=== PATIENT | male | born 1950 | race Caucasian/White ===

== ENCOUNTER 2017-06-09 15:56 | Inpatient (IN) | payer BC ==
[~2017-06-09] VITALS: Ht 185.4 cm; Wt 109.5 kg
--- NOTE | ~2017-06-09 | PR ---
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 His cultures from the ulcer from the have only grown Aerococcus. Urine grew enterococcus. Blood cultures are negative. He is scheduled for debridement by Dr. Garcia on Thursday. WBCs have improved down to 11.3. The patient is alert and oriented, tolerating the antibiotics. Denies fever, chills, nausea, vomiting or diarrhea. No rash or itch. No cough or shortness of breath. No fevers or shaking chills. OBJECTIVE: VITAL SIGNS: Show temperature 98.0, pulse 80, respirations 18, BP 128/52. LABORATORY DATA: Cultures as reviewed above. Vancomycin trough 22. WBC is 11.3, platelets 254. BUN 12, creatinine 0.92. CURRENT MEDICATIONS: Include vancomycin, Percocet, Ativan, vitamin D, folic acid, Neurontin, Lanoxin, ____, Senokot, Micro-K, MiraLax, Nicoderm, Dulera, Toprol, Cozaar, Colace, Cardizem, aspirin, Zyloprim, DuoNeb, Desyrel, Nitrostat, Protonix, Zosyn. PHYSICAL EXAMINATION: GENERAL: She is alert and oriented. 66-year-old male in no acute distress. HEAD, EYES, EARS, NOSE AND THROAT: Normocephalic, no thrush. LUNGS: Clear to auscultation bilaterally. Respirations even and unlabored. HEART: Regular rhythm. No murmur appreciated. ABDOMEN: Soft, positive bowel sounds. EXTREMITIES: Trace edema bilateral lower extremities, few dressings on the left lower extremity, right buttock decubitus, large extensive undermining fibrotic with foul odor and a large amount of purulent discharge. Surrounding skin with mild erythema and induration. ASSESSMENT: Infected stage IV right buttock decubitus with cultures thus far only growing enterococcus. PLAN: At this point, we will stop the vancomycin. Continue the Zosyn. The Enterococcus is sensitive to ampicillin. He has debridement on Thursday. Case discussed with Dr. Ro Kumar. ADDENDUM After reviewing the chart and labs, I agree with the above plans as described. We will follow the patient up clinically and adjust accordingly. KENDY GAO CNP [place], [place] PROGRESS NOTE NAME: LORYGUIDO UNIT #: [id number] ROOM: 516 DOCTOR: SIMA MARROQUIN BIRTHDATE: [birth year] RO KUMAR MD CM:PNTRANS [id number] AUGUST SIMA MARROQUIN 06/16/17 0551 interface
--- NOTE | ~2017-06-09 | PR ---
[place], [place] PROGRESS NOTE NAME: GUIDO HENLEY UNIT #: [id number] ROOM: 516 DOCTOR: JOSÉ RAUSCH,RO [place] BIRTHDATE: [birth year] DOS: 06/14/2017 ADDENDUM I agree with the above plans as described. We will follow the patient up clinically and adjust accordingly. RO KUMAR MD CM:PNTRANS [id number] RO KUMAR MD 06/16/17 0928 interface
--- NOTE | ~2017-06-09 | PR ---
[place], [place] PROGRESS NOTE NAME: GUIDO HENLEY UNIT #: [id number] ROOM: 516 DOCTOR: SIMA MARROQUIN,AUGUST BIRTHDATE: [birth year] DOS: SUBJECTIVE: The patient is being followed for an infected decubitus of his buttock. Outpatient cultures had grown enterococcus. Urine cultures had also grown enterococcus as colonization. The outpatient culture was obtained on June 08. The decubitus originally developed when he was hospitalized for severe pneumonia and ____. He is scheduled for surgery tomorrow. He remains on Zosyn. He has had no fevers or chills. No nausea, vomiting or diarrhea. No rash or itch. No cough or shortness of breath. LABORATORY DATA: Show WBCs 11.2, platelets 238. BUN 13 and creatinine 0.97. CURRENT MEDICATIONS: Include Solu-Medrol, Lovenox, Percocet, Ativan, vitamin D, folic acid, Neurontin, morphine, Dakin's, Senokot, Micro-K, MiraLax, Nicoderm, Dulera, Toprol, Cozaar, Colace, Cardizem, aspirin, Zyloprim, DuoNeb, Desyrel, Protonix, Zosyn and Zofran. PHYSICAL EXAMINATION: VITAL SIGNS: Temp 97.6, pulse 80, respirations 20 and BP 110/65. GENERAL: A 66-year-old obese male in no acute distress. HEAD, EYES, EARS, NOSE AND THROAT: Normocephalic, no thrush. LUNGS: Clear to auscultation bilaterally. Respirations even and unlabored. HEART: Regular rhythm. No murmur appreciated. ABDOMEN: Soft, nontender. EXTREMITIES: +1 edema bilateral lower extremities. Left leg ulcer is dressed, buttocks to keep dressed. SKIN: Warm, dry, free of rashes. ASSESSMENT: Infected most likely stage IV right buttock decubitus. PLAN: We will continue the Zosyn. Follow up on surgery tomorrow. He is going for surgical debridement per Dr. Garcia. I did discuss with the patient turning [id number] to stay off of the wound to help with wound healing, not sitting on it that he could ambulate and turn side to side in bed to relieve pressure to help with wound healing as well as making sure he has adequate protein intake in his diet and we discussed dietary sources of protein. Case discussed with Dr. Ro Kumar. KENDY GAO CNP [place], [place] PROGRESS NOTE NAME: GUIDO HENLEY UNIT #: [id number] ROOM: 516 DOCTOR: SIMA MARROQUIN BIRTHDATE: [birth year] RO KUMAR MD CM:PNTRANS [id number] AUGUST SIMA MARROQUIN 06/15/17 0338 interface
[~2017-06-09 15:56] MED LIST: AZOR 10-20 MG1 EACH PO; COUMADIN5 M1 PO; COUMADIN7.5 M1 PO; FLOMAX0.4 MG PO; NICODERM CQ1 EAC1 TD; NORCO 7.5-3251 EACH PO; TOPROL XL50 M1 PO
[2017-06-09 16:07] VITALS: BP 108/55
[2017-06-09] MEDS ORDERED: ASPIRIN ADULT L81 M2 PO (16:08)
[2017-06-09] MEDS ORDERED: NITROGLYCERIN0.4 MG SL (16:09)
[2017-06-09] MEDS ORDERED: DOK COLACE100 MG PO (16:09)
[2017-06-09] MEDS ORDERED: SANTYL30 GM T (16:10)
[2017-06-09] MEDS ORDERED: ACETAMINOPHEN325 M2 PO (16:10)
[2017-06-09] MEDS ORDERED: NATURAL VEGETA PO (16:11)
[2017-06-09] MEDS ORDERED: PREDNISONE20 M1 PO (16:11)
[2017-06-09] MEDS ORDERED: GABAPENTIN100 M2 PO (16:11)
[2017-06-09] MEDS ORDERED: MIRALAX POWDER255 G1 PO (16:12)
[2017-06-09] MEDS ORDERED: DUONEB 3 MG/3 ML3 M1 INH (16:13)
[2017-06-09] MEDS ORDERED: DAKIN S T (16:13)
[2017-06-09] MEDS ORDERED: BREO ELLIPTA 11 EACH INH (16:13)
[2017-06-09] MEDS ORDERED: ARGINAID POWDE1 EACH PO (16:14)
[2017-06-09] MEDS ORDERED: ALLOPURINOL300 MG PO (16:15)
[2017-06-09] MEDS ORDERED: FUROSEMIDE40 MG PO (16:15)
[2017-06-09] MEDS ORDERED: DIGOX250 MCG PO (16:15)
[2017-06-09] MEDS ORDERED: DILTIAZEM HCL240 M1 PO (16:16)
[2017-06-09] MEDS ORDERED: METOPROLOL SUCC25 M2 PO (16:17)
[2017-06-09] MEDS ORDERED: POTASSIUM CHLO10 ME4 PO (16:30)
[2017-06-09] MEDS ORDERED: LOSARTAN POTASS50 M1 PO (16:31)
[2017-06-09] MEDS ORDERED: XARE20MG PO (16:32)
[2017-06-09] MEDS ORDERED: TRAZODONE50 MG PO (16:32)
[2017-06-09] MEDS ORDERED: MILK OF MA400 MG/51 PO (16:33)
[2017-06-09 20:12] LABS: BILIRUBIN NEGATIVE (NEGATIVE); BLOOD NEGATIVE (NEGATIVE); CLARITY SL CLOUDY (CLEAR); COLOR YELLOW (YELLOW); GLUCOSE NEGATIVE (NEGATIVE); KETONE NEGATIVE (NEGATIVE); LEUKO ESTERASE 2+ (NEGATIVE); NITRITE NEGATIVE (NEGATIVE); PH 5.5 (5.0-9.0); UROBILINOGEN 0.2 E.U./dl (0.2-1.0)
[2017-06-09 20:17] VITALS: BP 114/60
[2017-06-09 20:24] LABS: BACTERIA 2+; EPITHELIAL CELLS 0-2; RBC 0-2 rbc/hpf (0-2); WBC TNTC wbc/hpf (0-5)
[2017-06-09 20:34] LABS: ALKALINE PHOSPHATASE 94 U/L (45-117); BUN 23 mg/dl (7-24); CHLORIDE 95 mmol/L (98-107); CREATININE 1.07 mg/dL (0.70-1.30); POTASSIUM 4.6 mmol/L (3.5-5.1); SGOT/AST 40 IU/L (3-35); SGPT/ALT 79 U/L (12-78); SODIUM 136 mmol/L (136-145); TOTAL PROTEIN 7.4 gm/dL (6.4-8.2)
[2017-06-09 20:46] LABS: PLATELET SUFFICIENCY NORMAL (NORMAL); TOTAL CELLS COUNTED 100 #CELLS
[2017-06-09 20:49] LABS: TARGET CELLS FEW
[2017-06-09 21:03] LABS: HEMATOCRIT 30.9 % (42.0-52.0); HEMOGLOBIN 9.5 g/dl (14.0-18.0); MEAN CELL VOLUME 86.3 fl (80.0-94.0); MEAN CORPUSCULAR HGB 26.5 pg (27.0-31.0); MEAN CORPUSCULAR HGB CONC 30.7 g/dl (33.0-37.0); MEAN PLATELET VOLUME 8.5 fl (9.6-12.3); PLATELET COUNT AUTOMATED 287 10*3/uL (130-400); RED BLOOD COUNT 3.58 10*6/uL (4.50-5.90); RED CELL DISTRI WIDTH 21.9 % (0-14.5); WHITE BLOOD COUNT 17.8 10*3/uL (4.8-10.8)
[2017-06-09 22:10] VITALS: BP 143/73
[2017-06-10] VITALS: BP 143/73
[2017-06-10 04:29] LABS: HEMATOCRIT 28.4 % (42.0-52.0); HEMOGLOBIN 8.7 g/dl (14.0-18.0); MEAN CELL VOLUME 86.3 fl (80.0-94.0); MEAN CORPUSCULAR HGB 26.4 pg (27.0-31.0); MEAN CORPUSCULAR HGB CONC 30.6 g/dl (33.0-37.0); MEAN PLATELET VOLUME 8.8 fl (9.6-12.3); PLATELET COUNT AUTOMATED 259 10*3/uL (130-400); RED BLOOD COUNT 3.29 10*6/uL (4.50-5.90); RED CELL DISTRI WIDTH 21.7 % (0-14.5); WHITE BLOOD COUNT 15.3 10*3/uL (4.8-10.8)
[2017-06-10 04:53] LABS: ALBUMIN 2.3 gm/dl (3.1-4.5); BUN 22 mg/dl (7-24); CHLORIDE 100 mmol/L (98-107); CHOLESTEROL 102 mg/dL (<200); CREATININE 0.95 mg/dL (0.70-1.30); INTERNATIONAL NORM RATIO 1.1 (2.0-3.5); PHOSPHOROUS 4.9 mg/dL (2.5-4.9); POTASSIUM 3.8 mmol/L (3.5-5.1); SGOT/AST 26 IU/L (3-35); SGPT/ALT 59 U/L (12-78); SODIUM 139 mmol/L (136-145); TOTAL PROTEIN 5.9 gm/dL (6.4-8.2); TRIGLYCERIDES 68 mg/dl (<150); VLDL CHOLESTEROL 14 mg/dL (6-40)
[2017-06-10 04:54] LABS: ALKALINE PHOSPHATASE 69 U/L (45-117); HDL CHOLESTEROL 60 mg/dl (40-60); LDL CHOLESTEROL 28 mg/dL (9-159)
[2017-06-10 05:18] LABS: PLATELET SUFFICIENCY NORMAL (NORMAL); TOTAL CELLS COUNTED 100 #CELLS
[2017-06-10 05:19] LABS: TARGET CELLS FEW
[2017-06-10 08:00] VITALS: BP 113/51
[2017-06-10 08:15] VITALS: BP 122/62
[2017-06-10] MEDS ORDERED: NORCO 10-325 T1 EACH PO (09:19)
[2017-06-10] MEDS ORDERED: NORCO 5-325 TA1 EACH PO (09:19)
[2017-06-10] MEDS ORDERED: XARELTO10 MG PO (09:20)
[2017-06-10 10:10] LABS: VITAMIN D, 25-HYDROXY 14.6 ng/mL (30-100)
[2017-06-10 12:00] VITALS: BP 131/62
[2017-06-10 16:00] VITALS: BP 118/47
[2017-06-10 20:00] VITALS: BP 92/52
[2017-06-11] VITALS: BP 108/54
[2017-06-11 06:33] LABS: HEMATOCRIT 29.5 % (42.0-52.0); HEMOGLOBIN 9.1 g/dl (14.0-18.0); MEAN CELL VOLUME 87.5 fl (80.0-94.0); MEAN CORPUSCULAR HGB CONC 30.8 g/dl (33.0-37.0); MEAN PLATELET VOLUME 8.8 fl (9.6-12.3); PLATELET COUNT AUTOMATED 268 10*3/uL (130-400); RED BLOOD COUNT 3.37 10*6/uL (4.50-5.90); RED CELL DISTRI WIDTH 22.2 % (0-14.5); WHITE BLOOD COUNT 12.5 10*3/uL (4.8-10.8)
[2017-06-11 07:18] LABS: BASOPHILS 1 % (0-1); PLATELET SUFFICIENCY NORMAL (NORMAL); POLYCHROMASIA SLIGHT; TOTAL CELLS COUNTED 100 #CELLS
[2017-06-11 08:00] VITALS: BP 138/61
[2017-06-11 08:45] VITALS: BP 138/72
[2017-06-11 12:00] VITALS: BP 105/50
[2017-06-11 16:00] VITALS: BP 96/40
[2017-06-11 20:00] VITALS: BP 124/68
[2017-06-12] VITALS: BP 115/40
[2017-06-12 07:57] LABS: HEMATOCRIT 30.9 % (42.0-52.0); HEMOGLOBIN 9.3 g/dl (14.0-18.0); MEAN CELL VOLUME 88.5 fl (80.0-94.0); MEAN CORPUSCULAR HGB 26.6 pg (27.0-31.0); MEAN CORPUSCULAR HGB CONC 30.1 g/dl (33.0-37.0); MEAN PLATELET VOLUME 8.8 fl (9.6-12.3); PLATELET COUNT AUTOMATED 254 10*3/uL (130-400); RED BLOOD COUNT 3.49 10*6/uL (4.50-5.90); RED CELL DISTRI WIDTH 22.3 % (0-14.5); WHITE BLOOD COUNT 11.3 10*3/uL (4.8-10.8)
[2017-06-12 08:00] VITALS: BP 128/52
[2017-06-12 08:28] LABS: BUN 12 mg/dl (7-24); CHLORIDE 100 mmol/L (98-107); CREATININE 0.92 mg/dL (0.70-1.30); POTASSIUM 4.1 mmol/L (3.5-5.1); SODIUM 141 mmol/L (136-145)
[2017-06-12 08:52] LABS: PLATELET SUFFICIENCY NORMAL (NORMAL); TOTAL CELLS COUNTED 100 #CELLS
[2017-06-12 16:00] VITALS: BP 104/38
[2017-06-12 20:00] VITALS: BP 124/63
[2017-06-13] VITALS: BP 99/55
[2017-06-13 06:32] LABS: HEMATOCRIT 30.3 % (42.0-52.0); HEMOGLOBIN 8.9 g/dl (14.0-18.0); MEAN CELL VOLUME 89.9 fl (80.0-94.0); MEAN CORPUSCULAR HGB 26.4 pg (27.0-31.0); MEAN CORPUSCULAR HGB CONC 29.4 g/dl (33.0-37.0); MEAN PLATELET VOLUME 9.4 fl (9.6-12.3); PLATELET COUNT AUTOMATED 257 10*3/uL (130-400); RED BLOOD COUNT 3.37 10*6/uL (4.50-5.90); RED CELL DISTRI WIDTH 22.3 % (0-14.5); WHITE BLOOD COUNT 11.9 10*3/uL (4.8-10.8)
[2017-06-13 06:46] LABS: BUN 11 mg/dl (7-24); CHLORIDE 99 mmol/L (98-107); POTASSIUM 4.1 mmol/L (3.5-5.1); SODIUM 139 mmol/L (136-145)
[2017-06-13 07:10] LABS: TOTAL CELLS COUNTED 100 #CELLS
[2017-06-13 07:11] LABS: PLATELET SUFFICIENCY NORMAL (NORMAL)
[2017-06-13 08:00] VITALS: BP 106/45
[2017-06-13 12:00] VITALS: BP 108/36
[2017-06-13 16:00] VITALS: BP 110/46
[2017-06-13 20:00] VITALS: BP 91/48
[2017-06-14 00:16] VITALS: BP 96/59
[2017-06-14 06:15] LABS: BASO % 0.2 % (0.0-1.0); HEMATOCRIT 30.9 % (42.0-52.0); HEMOGLOBIN 9.3 g/dl (14.0-18.0); LYMPH # 1.1 10*3/uL (1.3-4.4); LYMPH % 9.7 % (27.0-41.0); MEAN CELL VOLUME 88.8 fl (80.0-94.0); MEAN CORPUSCULAR HGB 26.7 pg (27.0-31.0); MEAN CORPUSCULAR HGB CONC 30.1 g/dl (33.0-37.0); MEAN PLATELET VOLUME 8.8 fl (9.6-12.3); MONO # 0.3 10*3/uL (0.1-1.0); MONO % 2.6 % (3.0-9.0); NEUT # 9.6 10*3/uL (2.3-7.9); NEUT % 85.6 % (47.0-73.0); PLATELET COUNT AUTOMATED 238 10*3/uL (130-400); RED BLOOD COUNT 3.48 10*6/uL (4.50-5.90); RED CELL DISTRI WIDTH 22.2 % (0-14.5); WHITE BLOOD COUNT 11.2 10*3/uL (4.8-10.8)
[2017-06-14 06:46] LABS: BUN 13 mg/dl (7-24); CHLORIDE 100 mmol/L (98-107); CREATININE 0.97 mg/dL (0.70-1.30); POTASSIUM 4.7 mmol/L (3.5-5.1); SODIUM 138 mmol/L (136-145)
[2017-06-14 08:00] VITALS: BP 142/67
[2017-06-14 10:59] VITALS: BP 136/66
[2017-06-14 12:00] VITALS: BP 105/51
[2017-06-14 16:56] VITALS: BP 110/65
[2017-06-14 20:12] VITALS: BP 136/43
[2017-06-15] VITALS (9 sets, daily range): BP systolic 122–145; BP diastolic 50–70
[2017-06-15 07:13] LABS: BASO % 0.1 % (0.0-1.0); HEMATOCRIT 35.2 % (42.0-52.0); HEMOGLOBIN 10.3 g/dl (14.0-18.0); LYMPH # 1.5 10*3/uL (1.3-4.4); LYMPH % 8.3 % (27.0-41.0); MEAN CORPUSCULAR HGB 26.6 pg (27.0-31.0); MEAN CORPUSCULAR HGB CONC 29.3 g/dl (33.0-37.0); MEAN PLATELET VOLUME 9.3 fl (9.6-12.3); MONO # 0.3 10*3/uL (0.1-1.0); MONO % 1.8 % (3.0-9.0); NEUT # 16.1 10*3/uL (2.3-7.9); NEUT % 88.6 % (47.0-73.0); RED BLOOD COUNT 3.87 10*6/uL (4.50-5.90); RED CELL DISTRI WIDTH 22.2 % (0-14.5); WHITE BLOOD COUNT 18.2 10*3/uL (4.8-10.8)
[2017-06-15 07:16] LABS: PLATELET COUNT AUTOMATED 338 10*3/uL (130-400)
[2017-06-16] VITALS: BP 125/68
[2017-06-16 06:32] LABS: BASO % 0.1 % (0.0-1.0); HEMATOCRIT 31.8 % (42.0-52.0); HEMOGLOBIN 9.5 g/dl (14.0-18.0); LYMPH # 1.2 10*3/uL (1.3-4.4); LYMPH % 7.4 % (27.0-41.0); MEAN CELL VOLUME 90.1 fl (80.0-94.0); MEAN CORPUSCULAR HGB 26.9 pg (27.0-31.0); MEAN CORPUSCULAR HGB CONC 29.9 g/dl (33.0-37.0); MEAN PLATELET VOLUME 9.1 fl (9.6-12.3); MONO # 0.4 10*3/uL (0.1-1.0); MONO % 2.4 % (3.0-9.0); NEUT % 88.9 % (47.0-73.0); PLATELET COUNT AUTOMATED 322 10*3/uL (130-400); RED BLOOD COUNT 3.53 10*6/uL (4.50-5.90); RED CELL DISTRI WIDTH 22.3 % (0-14.5); WHITE BLOOD COUNT 15.7 10*3/uL (4.8-10.8)
[2017-06-16 07:05] LABS: BUN 20 mg/dl (7-24); CHLORIDE 102 mmol/L (98-107); CREATININE 1.07 mg/dL (0.70-1.30); PHOSPHOROUS 3.7 mg/dL (2.5-4.9); POTASSIUM 4.8 mmol/L (3.5-5.1); SODIUM 139 mmol/L (136-145)
[2017-06-16 08:00] VITALS: BP 168/86
[2017-06-16 12:00] VITALS: BP 111/84
[2017-06-16 16:00] VITALS: BP 122/51
[2017-06-16 20:00] VITALS: BP 147/51
[2017-06-17] VITALS: BP 190/85
[2017-06-17 07:23] LABS: BASO % 0.1 % (0.0-1.0); HEMATOCRIT 31.4 % (42.0-52.0); HEMOGLOBIN 9.6 g/dl (14.0-18.0); LYMPH # 1.3 10*3/uL (1.3-4.4); LYMPH % 9.3 % (27.0-41.0); MEAN CORPUSCULAR HGB 27.2 pg (27.0-31.0); MEAN CORPUSCULAR HGB CONC 30.6 g/dl (33.0-37.0); MONO # 0.5 10*3/uL (0.1-1.0); MONO % 3.6 % (3.0-9.0); NEUT # 12.2 10*3/uL (2.3-7.9); NEUT % 85.2 % (47.0-73.0); PLATELET COUNT AUTOMATED 329 10*3/uL (130-400); RED BLOOD COUNT 3.53 10*6/uL (4.50-5.90); WHITE BLOOD COUNT 14.3 10*3/uL (4.8-10.8)
[2017-06-17 08:00] VITALS: BP 157/74
[2017-06-17 12:00] VITALS: BP 138/55
[2017-06-17 16:00] VITALS: BP 126/55
[2017-06-17 19:55] VITALS: BP 150/70
[2017-06-18] VITALS: BP 156/59
[2017-06-18 06:42] VITALS: BP 143/60
[2017-06-18 12:00] VITALS: BP 131/54
[2017-06-18 16:00] VITALS: BP 147/80
[2017-06-18 20:00] VITALS: BP 156/75
[2017-06-19] VITALS: BP 156/72
[2017-06-19 07:01] LABS: HEMATOCRIT 32.4 % (42.0-52.0); HEMOGLOBIN 9.9 g/dl (14.0-18.0); MEAN CELL VOLUME 88.3 fl (80.0-94.0); MEAN CORPUSCULAR HGB CONC 30.6 g/dl (33.0-37.0); MEAN PLATELET VOLUME 8.6 fl (9.6-12.3); PLATELET COUNT AUTOMATED 344 10*3/uL (130-400); RED BLOOD COUNT 3.67 10*6/uL (4.50-5.90); RED CELL DISTRI WIDTH 22.3 % (0-14.5); WHITE BLOOD COUNT 14.9 10*3/uL (4.8-10.8)
[2017-06-19 07:38] LABS: CHLORIDE 98 mmol/L (98-107); POTASSIUM 4.5 mmol/L (3.5-5.1); SODIUM 137 mmol/L (136-145)
[2017-06-19 07:42] LABS: BUN 25 mg/dl (7-24); CREATININE 0.91 mg/dL (0.70-1.30)
[2017-06-19 08:11] LABS: POLYCHROMASIA SLIGHT; TOTAL CELLS COUNTED 100 #CELLS
[2017-06-19 08:12] LABS: PLATELET SUFFICIENCY NORMAL (NORMAL); TARGET CELLS FEW
[2017-06-19 08:43] VITALS: BP 164/94
[2017-06-19 12:00] VITALS: BP 116/65
[2017-06-19] MEDS ORDERED: SOLU-MEDRO40 MG/1 ML IV (12:36)
[2017-06-19] MEDS ORDERED: ENOXAPARIN120 MG/0.2 SC (12:36)
[2017-06-19] MEDS ORDERED: ZOSYN 3.373.375 GM/5 IV (12:36)
== END 2017-06-19 16:07 | DRG 853 ==
LOC: EDSTATUS 15:56 → ED 15:56 → EDHOLD 21:25 → 5E 21:25
PROVIDERS: Emergency Medicine; Hospitalist; Internal Medicine; Internal Medicine Hospice and Palliative Medicine
PROC: 0JB70ZZ Excision of Back Subcutaneous Tissue and Fascia, Open Approach (ICD-10-PCS; principal; 2017-06-15)
PROC: 0JBP0ZZ Excision of Left Lower Leg Subcutaneous Tissue and Fascia, Open Approach (ICD-10-PCS; principal; 2017-06-15)
PROC: 02HV33Z Insertion of Infusion Device into Superior Vena Cava, Percutaneous Approach (ICD-10-PCS; 2017-06-18)
DX: A41.9 Sepsis, unspecified organism (principal); E43 Unspecified severe protein-calorie malnutrition; L89.153 Pressure ulcer of sacral region, stage 3; E87.8 Other disorders of electrolyte and fluid balance, not elsewhere classified; L89.154 Pressure ulcer of sacral region, stage 4; I48.2 Chronic atrial fibrillation; S31.819A Unspecified open wound of right buttock, initial encounter; D64.9 Anemia, unspecified; N39.0 Urinary tract infection, site not specified; I25.10 Atherosclerotic heart disease of native coronary artery without angina pectoris; G62.9 Polyneuropathy, unspecified; I73.9 Peripheral vascular disease, unspecified; R65.20 Severe sepsis without septic shock; N40.0 Benign prostatic hyperplasia without lower urinary tract symptoms; E53.8 Deficiency of other specified B group vitamins; T14.8XXA Other injury of unspecified body region, initial encounter; R73.9 Hyperglycemia, unspecified; L08.9 Local infection of the skin and subcutaneous tissue, unspecified; B95.2 Enterococcus as the cause of diseases classified elsewhere; F12.10 Cannabis abuse, uncomplicated; I10 Essential (primary) hypertension; K59.00 Constipation, unspecified; M1A.9XX0 Chronic gout, unspecified, without tophus (tophi); G47.00 Insomnia, unspecified; E55.9 Vitamin D deficiency, unspecified; Z68.31 Body mass index [BMI] 31.0-31.9, adult; Z79.1 Long term (current) use of non-steroidal anti-inflammatories (NSAID); Z79.82 Long term (current) use of aspirin; Z79.899 Other long term (current) drug therapy

== ENCOUNTER → 2017-07-07 | Outpatient (CLI) | payer BC ==
[~2017-07-07] MED LIST changes: +ACETAMINOPHEN325 M2 PO; +ALLOPURINOL300 MG PO; +ARGINAID POWDE1 EACH PO; +ASPIRIN ADULT L81 M2 PO; +BREO ELLIPTA 11 EACH INH; +DAKIN S T; +DIGOX250 MCG PO; +DILTIAZEM HCL240 M1 PO; +DOK COLACE100 MG PO; +DUONEB 3 MG/3 ML3 M1 INH; +ENOXAPARIN120 MG/0.2 SC; +FUROSEMIDE40 MG PO; +GABAPENTIN100 M2 PO; +LOSARTAN POTASS50 M1 PO; +METOPROLOL SUCC25 M2 PO; +MILK OF MA400 MG/51 PO; +MIRALAX POWDER255 G1 PO; +NATURAL VEGETA PO; +NITROGLYCERIN0.4 MG SL; +NORCO 10-325 T1 EACH PO; +NORCO 5-325 TA1 EACH PO; +POTASSIUM CHLO10 ME4 PO; +PREDNISONE20 M1 PO; +SANTYL30 GM T; +SOLU-MEDRO40 MG/1 ML IV; +TRAZODONE50 MG PO; +XARE20MG PO; +XARELTO10 MG PO; +ZOSYN 3.373.375 GM/5 IV
== END | disposition home or self-care (01) ==
LOC: WOUNDCARE 06-16 07:42
DX: L89.314 Pressure ulcer of right buttock, stage 4 (principal); L89.620 Pressure ulcer of left heel, unstageable; I70.242 Atherosclerosis of native arteries of left leg with ulceration of calf; L97.222 Non-pressure chronic ulcer of left calf with fat layer exposed; I10 Essential (primary) hypertension; I48.91 Unspecified atrial fibrillation; I25.2 Old myocardial infarction; I25.10 Atherosclerotic heart disease of native coronary artery without angina pectoris; F17.210 Nicotine dependence, cigarettes, uncomplicated; Z95.820 Peripheral vascular angioplasty status with implants and grafts; Z79.01 Long term (current) use of anticoagulants

== ENCOUNTER → 2017-07-14 | Outpatient (CLI) | payer BC | END | disposition home or self-care (01) | LOC: WOUNDCARE 01:37 | DX: L89.314 Pressure ulcer of right buttock, stage 4 (principal); L89.620 Pressure ulcer of left heel, unstageable; L97.221 Non-pressure chronic ulcer of left calf limited to breakdown of skin; I87.2 Venous insufficiency (chronic) (peripheral); I11.0 Hypertensive heart disease with heart failure; I50.9 Heart failure, unspecified; I25.2 Old myocardial infarction; I25.10 Atherosclerotic heart disease of native coronary artery without angina pectoris; I73.9 Peripheral vascular disease, unspecified; Z95.820 Peripheral vascular angioplasty status with implants and grafts; F17.200 Nicotine dependence, unspecified, uncomplicated ==

== ENCOUNTER → 2017-07-30 | Outpatient (CLI) | payer MEDICARE | END | disposition home or self-care (01) | LOC: WOUNDCARE 00:44 | DX: L89.314 Pressure ulcer of right buttock, stage 4 (principal); L89.891 Pressure ulcer of other site, stage 1; L89.620 Pressure ulcer of left heel, unstageable; L97.221 Non-pressure chronic ulcer of left calf limited to breakdown of skin; I87.2 Venous insufficiency (chronic) (peripheral); I48.91 Unspecified atrial fibrillation; I73.9 Peripheral vascular disease, unspecified; I25.2 Old myocardial infarction; I11.9 Hypertensive heart disease without heart failure; F17.200 Nicotine dependence, unspecified, uncomplicated; Z79.01 Long term (current) use of anticoagulants ==

== ENCOUNTER → 2017-08-06 | Outpatient (CLI) | payer MEDICARE | END | disposition home or self-care (01) | LOC: WOUNDCARE 02:13 | DX: L97.222 Non-pressure chronic ulcer of left calf with fat layer exposed (principal); L89.314 Pressure ulcer of right buttock, stage 4; L89.620 Pressure ulcer of left heel, unstageable; L89.521 Pressure ulcer of left ankle, stage 1; L89.890 Pressure ulcer of other site, unstageable; F17.210 Nicotine dependence, cigarettes, uncomplicated; Z79.01 Long term (current) use of anticoagulants ==

== ENCOUNTER → 2017-08-13 | Outpatient (CLI) | payer MEDICARE | END | disposition home or self-care (01) | LOC: WOUNDCARE 01:27 | DX: L89.314 Pressure ulcer of right buttock, stage 4 (principal); L89.620 Pressure ulcer of left heel, unstageable; L89.521 Pressure ulcer of left ankle, stage 1; L89.890 Pressure ulcer of other site, unstageable; L97.221 Non-pressure chronic ulcer of left calf limited to breakdown of skin; I87.2 Venous insufficiency (chronic) (peripheral); I10 Essential (primary) hypertension; I48.91 Unspecified atrial fibrillation; I73.9 Peripheral vascular disease, unspecified; I25.2 Old myocardial infarction; F17.200 Nicotine dependence, unspecified, uncomplicated ==

== ENCOUNTER → 2017-08-20 | Outpatient (CLI) | payer MEDICARE | END | disposition home or self-care (01) | LOC: WOUNDCARE 01:40 | DX: L89.314 Pressure ulcer of right buttock, stage 4 (principal); L89.890 Pressure ulcer of other site, unstageable; I10 Essential (primary) hypertension; I48.91 Unspecified atrial fibrillation; I73.9 Peripheral vascular disease, unspecified; I25.2 Old myocardial infarction; I25.10 Atherosclerotic heart disease of native coronary artery without angina pectoris; F17.200 Nicotine dependence, unspecified, uncomplicated; Z95.820 Peripheral vascular angioplasty status with implants and grafts ==

== ENCOUNTER → 2017-08-27 | Outpatient (CLI) | payer MEDICARE | END | disposition home or self-care (01) | LOC: WOUNDCARE 00:23 | DX: L89.314 Pressure ulcer of right buttock, stage 4 (principal); L89.890 Pressure ulcer of other site, unstageable; I10 Essential (primary) hypertension; I48.91 Unspecified atrial fibrillation; I73.9 Peripheral vascular disease, unspecified; I25.2 Old myocardial infarction; I25.10 Atherosclerotic heart disease of native coronary artery without angina pectoris; Z95.820 Peripheral vascular angioplasty status with implants and grafts; F17.200 Nicotine dependence, unspecified, uncomplicated ==

== ENCOUNTER → 2019-01-21 | Outpatient (CLI) | payer MEDICARE ==
[2019-01-21 13:21] LABS: BILIRUBIN NEGATIVE (NEGATIVE); BLOOD TRACE-LYSED (NEGATIVE); CLARITY CLEAR (CLEAR); COLOR YELLOW (YELLOW); GLUCOSE NEGATIVE (NEGATIVE); KETONE NEGATIVE (NEGATIVE); LEUKO ESTERASE NEGATIVE (NEGATIVE); NITRITE NEGATIVE (NEGATIVE); PH 5.5 (5.0-9.0); SPECIFIC GRAVITY <= 1.005 (1.005-1.030); UROBILINOGEN 0.2 E.U./dl (0.2-1.0)
[2019-01-21 13:33] LABS: EPITHELIAL CELLS 0-2; RBC 0-2 rbc/hpf (0-2)
== END | disposition home or self-care (01) ==
LOC: LAB 12:06 → RAD 12:06
PROVIDERS: Family Medicine
DX: J44.1 Chronic obstructive pulmonary disease with (acute) exacerbation (principal); N30.90 Cystitis, unspecified without hematuria; I10 Essential (primary) hypertension; F17.200 Nicotine dependence, unspecified, uncomplicated; I48.91 Unspecified atrial fibrillation

== ENCOUNTER → 2019-03-17 | Outpatient (CLI) | payer MEDICARE ==
[2019-03-17 15:14] LABS: COLOR YELLOW (YELLOW)
[2019-03-17 15:15] LABS: BILIRUBIN NEGATIVE (NEGATIVE); BLOOD TRACE-LYSED (NEGATIVE); CLARITY CLEAR (CLEAR); GLUCOSE NEGATIVE (NEGATIVE); KETONE NEGATIVE (NEGATIVE); LEUKO ESTERASE NEGATIVE (NEGATIVE); NITRITE NEGATIVE (NEGATIVE); SPECIFIC GRAVITY <= 1.005 (1.005-1.030); UROBILINOGEN 0.2 E.U./dl (0.2-1.0)
[2019-03-17 15:16] LABS: EPITHELIAL CELLS 0-2; RBC 0-2 rbc/hpf (0-2)
== END | disposition home or self-care (01) ==
LOC: LAB 13:55
PROVIDERS: Family Medicine
DX: R31.9 Hematuria, unspecified (principal)